=== PATIENT | male | born 2000 | race Caucasian/White ===

== ENCOUNTER 2021-03-27 05:07 | Emergency (ER) | payer BC ==
[2021-03-27] MEDS ORDERED: SODIUM CHLORIDE 0.9% 1,000 ML IV STA (05:10)
[2021-03-27] MEDS ORDERED: DIPH,PERTUS(ACELL)TETVAC-LF 0.5 ML VIAL IM ONE (05:10)
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
[2021-03-27 05:32] LABS: Basophils # (A) 0.1 k/uL (0-0.2); Basophils % (A) 1 %; Eosinophils # (A) 0.1 k/uL (0-0.7); Eosinophils % (A) 1 %; HCT 42.6 % (39.0-53.0); HGB 14.8 gm/dL (13.0-17.5); Lymphocytes # (A) 1.8 k/uL (1.0-4.8); Lymphocytes % (A) 13 %; MCH 30.2 pg (25.0-35.0); MCHC 34.7 g/dL (31.0-37.0); MCV 87.1 fL (80.0-100.0); Mean Platelet Volume 7.4; Monocytes # (A) 0.6 k/uL (0-1.0); Monocytes % (A) 5 %; Neutrophils # (A) 11.1 k/uL (1.3-7.7); Neutrophils % (A) 80 %; Platelet Count 226 k/uL (150-450); RBC 4.89 m/uL (4.30-5.90); RDW 13.5 % (11.5-15.5); WBC 13.8 k/uL (3.8-10.6)
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
[2021-03-27 05:50] VITALS: BP 130/83; PULSE 117; RESP 16; TEMP 98
[2021-03-27 05:52] LABS: INR 1.3 (<1.2); Partial Thromboplastin Time 24.1 sec (22.0-30.0); Prothrombin Time 13.1 sec (9.0-12.0)
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
[2021-03-27 06:01] LABS: ALT 57 U/L (4-49); AST 87 U/L (17-59); African American GFR (CKD) >90 (>60 ml/min/1.73 sqM); Albumin 3.8 g/dL (3.5-5.0); Alkaline Phosphatase 71 U/L (38-126); Anion Gap 9 mmol/L; Blood Urea Nitrogen 15 mg/dL (9-20); Calcium 8.2 mg/dL (8.4-10.2); Carbon Dioxide 24 mmol/L (22-30); Chloride 108 mmol/L (98-107); Glucose 107 mg/dL (74-99); Magnesium 1.9 mg/dL (1.6-2.3); Non-African American GFR(CKD) >90 (>60 ml/min/1.73 sqM); Phosphorus 3.2 mg/dL (2.5-4.5); Potassium 3.7 mmol/L (3.5-5.1); Sodium 141 mmol/L (137-145); Total Bilirubin 0.5 mg/dL (0.2-1.3); Total Protein 6.4 g/dL (6.3-8.2)
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
[2021-03-27] MEDS: HYDROmorphone 1 MG/ML 1 ML SYRINGE IVP STA ×2 (06:11→07:02)
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
--- NOTE | 2021-03-27 06:12 | XR ---
EXAMINATION TYPE: XR tibia fibula bilateral DATE OF EXAM: 03/27/2021 COMPARISON: NONE HISTORY: Pain TECHNIQUE: 4 views each tibia and fibula FINDINGS: I see no fracture nor dislocation. Joint spaces are normal. There is no sign of knee joint effusion. The ankle joints appear intact. There are no pathologic calcifications. IMPRESSION: Negative bilateral tibia and fibula exam.
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
[2021-03-27 06:51] LABS: Alcohol 198 mg/dL
[2021-03-27] MEDS: ONDANSETRON 4 MG/2 ML VIAL IVP STA ×2 (08:30→08:34)
[2021-03-27] MEDS ORDERED: ONDANSETRON ODT 4 MG TAB PO STA (08:32)
== END 2021-03-27 10:18 | disposition home or self-care (01) ==
LOC: EC 05:07
DX: S01.01XA Laceration without foreign body of scalp, initial encounter (principal); F10.129 Alcohol abuse with intoxication, unspecified; V89.2XXA Person injured in unspecified motor-vehicle accident, traffic, initial encounter; Y92.410 Unspecified street and highway as the place of occurrence of the external cause; Y90.6 Blood alcohol level of 120-199 mg/100 ml
CPT/HCPCS: 99291; 96374; 93005; 86900; 86901; 80053; 83605; 83735; 84100; 84484; 85025; 85610; 85730; 86850; 80320; 73590; 72170; 73552; 71045; 72125; 70486; 70450; 71260; 74177; J0690; J1170; Q9967